=== PATIENT | female | born 1940 | race Caucasian/White ===

== ENCOUNTER → 2016-11-16 | Outpatient (CLI) | payer MEDICARE ==
--- NOTE | 2016-11-17 12:22 | XCELERA REPORT ---
[address] [address] Lower Extremity Arterial Evaluation Name: MYLES FISCHER Age: 76 yrs Gender: Female : 1940 Patient Status: Outpatient Patient Location: Study Date: 11/16/2016 08:08 AM Procedure: A color flow and duplex scan of the lower extremity arteries was performed bilaterally with velocity and waveform anaylsis. Ankle brachial indicies performed. Reason For Study: PVD Ordering Physician: JULI HERNANDEZ Performed By: Carlos Enrique Ron Measurements and Calculations Right Left FRIT MIXER PSV 196.4 158.0 cm/sec Prox PFA PSV -87.3 -75.4 cm/sec Dist SFA PSV -121.5 -113.1 cm/sec Dist Pop A PSV 114.5 84.0 cm/sec Dist MELISSA PSV 21.0 84.3 cm/sec Dist MA[facility]PITAL PSV 107.5 72.9 cm/sec Shaan Pedis PSV 36.2 82.3 cm/sec Right Side Arterial Evaluation Normal velocity and triphasic waveforms noted from the Common Femoral artery to the Popliteal artery. Biphasic thereafter top the infrageniculate vessels. 0-19% stenosis at the Popliteal artery . Ankle Brachial index is 1.24. Left Side Arterial Evaluation Normal velocity and triphasic waveforms noted from the Common Femoral artery to the infregeniculate vessels. 0 % stenosis noted. Ankle Brachial index is 1.09. Interpretation Summary Mild hemodynamically significant lesions in the right lower extremity only, on duplex imaging, at rest. No hemodynamically significant lesions in the left lower extremity only, on duplex imaging, at rest. : JULI HERNANDEZ > Singh Wynn
== END ==
LOC: SP 07:48
PROVIDERS: ATTEND Internal Medicine Geriatric Medicine
DX: I73.9 Peripheral vascular disease, unspecified (principal)
CPT/HCPCS: 93925

== ENCOUNTER 2017-03-08 14:23 | Observation (INO) | payer MEDICARE ==
[2017-03-08 15:32] LABS: ABSOLUTE BASOPHILS # (AUTO) 0.1 10^3/uL (0.0-0.2); ABSOLUTE EOSINOPHILS # (AUTO) 0.2 10^3/uL (0.0-0.6); ABSOLUTE LYMPHOCYTES (AUTO) 1.8 10^3/uL (0.5-4.7); ABSOLUTE MONOCYTES (AUTO) 0.7 10^3/uL (0.1-1.4); BASOPHILS % (AUTO) 0.9 % (0-2); EOSINOPHILS % (AUTO) 1.2 % (0-6); LYMPHOCYTES % (AUTO) 14.3 % (13-45); MEAN CORPUSCULAR HEMOGLOBIN 31.4 pg (27.0-33.4); MEAN CORPUSCULAR HGB CONC 34.4 g/dL (32.0-36.0); MEAN CORPUSCULAR VOLUME 91 fl (80-97); MONOCYTES % (AUTO) 5.5 % (3-13); RED BLOOD COUNT 4.15 10^6/uL (3.72-5.28); SEGMENTED NEUTROPHILS % (AUTO) 78.1 % (42-78); WHITE BLOOD COUNT 12.8 10^3/uL (4.0-10.5)
--- NOTE | 2017-03-08 16:26 | ER Document Report ---
ED General - General Chief Complaint: Dizziness Stated Complaint: DIZZINESS Time Seen by Provider: 03/08/17 14:28 Mode of Arrival: Stretcher Information source: Patient, Dr. Office Notes: 77-year-old female who has had dizziness episodes over the past year presents after she had another dizzy episode after she had an injection performed by her physician. Patient was brought in for evaluation, she denies any complaints states this is similar to all her previous dizzy episodes she states this has nothing to do with the procedure she had done today. Patient notes that she feels silly for being here but was reassured that I will evaluate her for this chronic dizziness TRAVEL OUTSIDE OF THE [place] IN LAST 30 DAYS: No - HPI Onset: Just prior to arrival Onset/Duration: Sudden, Gone Quality of pain: No pain Severity: Mild Pain Level: Denies Associated symptoms: Other - Patient notes symptoms have resolved Exacerbated by: Denies Relieved by: Denies Similar symptoms previously: Yes Recently seen / treated by doctor: Yes - Related Data Allergies/Adverse Reactions: codeine Allergy (Verified 03/08/17 14:52) Past Medical History - Social History Smoking Status: Never Smoker Cigarette use (# per day): No Chew tobacco use (# tins/day): No Smoking Education Provided: No Drug Abuse: None Family History: Reviewed & Not Pertinent Patient has suicidal ideation: No Patient has homicidal ideation: No - Past Medical History Cardiac Medical History: Reports: Hx Hypertension Endocrine Medical History: Reports: Hx Diabetes Mellitus Type 2 Renal/ Medical History: Denies: Hx Peritoneal Dialysis Past Surgical History: Reports: Hx Breast Surgery, Hx Cholecystectomy, Hx Hysterectomy Review of Systems - Review of Systems Notes: REVIEW OF SYSTEMS: CONSTITUTIONAL : Denies fever, chills, or sweats. Denies recent illness. EENT: Denies eye, ear, throat, or mouth pain or symptoms. Denies nasal or sinus congestion or discharge. Denies throat, tongue, or mouth swelling or difficulty swallowing. CARDIOVASCULAR: Denies chest pain. Denies palpitations or racing or irregular heart beat. Denies ankle edema. RESPIRATORY: Denies cough, cold, or chest congestion. Denies shortness of breath, difficulty breathing, or wheezing. GASTROINTESTINAL: Denies abdominal pain or distention. Denies nausea, vomiting , or diarrhea. Denies blood in vomitus, stools, or per rectum. Denies black, tarry stools. Denies constipation. GENITOURINARY: Denies difficulty urinating, painful urination, burning, frequency, blood in urine, or discharge. FEMALE GENITOURINARY: Denies vaginal bleeding, heavy or abnormal periods, irregular periods. Denies vaginal discharge or odor. MUSCULOSKELETAL: Denies back or neck pain or stiffness. Denies joint pain or swelling. SKIN: Denies rash, lesions or sores. HEMATOLOGIC : Denies easy bruising or bleeding. LYMPHATIC: Denies swollen, enlarged glands. NEUROLOGICAL: Admits to dizziness PSYCHIATRIC: Denies anxiety or stress. Denies depression, suicidal ideation, or homicidal ideation. ALL OTHER SYSTEMS REVIEWED AND NEGATIVE. PHYSICAL EXAMINATION: GENERAL: Well-appearing, well-nourished and in no acute distress. HEAD: Atraumatic, normocephalic. EYES: Pupils equal round and reactive to light, extraocular movements intact, conjunctiva are normal. ENT: Nares patent, oropharynx clear without exudates. Moist mucous membranes. NECK: Normal range of motion, supple without lymphadenopathy LUNGS: Breath sounds clear to auscultation bilaterally and equal. No wheezes rales or rhonchi. HEART: Regular rate and rhythm without murmurs ABDOMEN: Soft, nontender, nondistended abdomen. No guarding, no rebound. No masses appreciated. Female : deferred Musculoskeletal: Normal range of motion, no pitting or edema. No cyanosis. NEUROLOGICAL: Cranial nerves grossly intact. Normal speech, normal gait. Normal sensory, motor exams PSYCH: Normal mood, normal affect. SKIN: Warm, Dry, normal turgor, no rashes or lesions noted. Dictation was performed using [place] voice recognition software Physical Exam - Vital signs Vitals: Temp Resp Pulse Ox 97.6 F 26 H 99 03/08/17 14:36 03/08/17 14:36 03/08/17 14:36 Course - Re-evaluation Re-evalutation: 03/08/17 16:26 Patient's physical examination is quite benign, I will order lab work, EKG noted no significant abnormality, patient has had and her chronic dizziness evaluated by her primary care physician, after my initial evaluation she does admit that she has had some sinus tenderness that her physician has been treating with nasal sprays 03/08/17 17:18 Patient noted to have significant hyperkalemia and worsening renal failure, I did contact her primary care physician who notes that her labs have been similar in the past but are worse today. I did speak with the patient she is afraid that due to her dizziness she may fall again. Therefore I will admit the patient for hospitalization - Vital Signs Vital signs: Temp Pulse Resp BP Pulse Ox 97.6 F 21 H 139/85 H 98 03/08/17 14:36 03/08/17 14:37 03/08/17 14:37 03/08/17 14:37 - Laboratory Result Diagrams: 03/08/17 15:21 03/08/17 16:19 Laboratory results interpreted by me: 03/08/17 03/08/17 15:21 16:19 WBC 12.8 H Seg Neutrophils % 78.1 H Absolute Neutrophils 10.0 H Potassium 5.9 H Chloride 108 H Carbon Dioxide 20 L BUN 41 H Creatinine 1.96 H Est GFR ( Amer) 30 L Est GFR (Non-Af Amer) 25 L - EKG Interpretation by Me EKG shows normal: Sinus rhythm, [place], Intervals, QRS Complexes Critical Care Note - Critical Care Note Total time excluding time spent on procedures (mins): 34 Comments: 34 minutes of critical care time spent in direct contact evaluating and reevaluating the patient, treating symptoms, reviewing labs and studies and speaking with family and consultants excluding any procedures Discharge - Discharge Clinical Impression: Hyperkalemia, Dizziness Condition: Good Disposition: ADMITTED OBSERVATION Admitting Provider: Lucrecia Unit Admitted: Telemetry Referrals: SARWAT RODRIGUEZ MD [Primary Care Provider] - Follow up as needed
[2017-03-08 16:46] LABS: ALANINE AMINOTRANSFERASE 25 U/L (9-52); ALKALINE PHOSPHATASE 58 U/L (38-126); ANION GAP 13 (5-19); ASPARTATE AMINO TRANSFERASE 21 U/L (14-36); BILIRUBIN,DIRECT 0.3 mg/dL (0.0-0.4); BILIRUBIN,TOTAL 0.3 mg/dL (0.2-1.3); BLOOD UREA NITROGEN 41 mg/dL (7-20); CALCIUM 9.3 mg/dL (8.4-10.2); CARBON DIOXIDE 20 mmol/L (22-30); CHLORIDE 108 mmol/L (98-107); CREATININE RESULT 1.96 mg/dL (0.52-1.25); GLUCOSE 95 mg/dL (75-110); POTASSIUM 5.9 mmol/L (3.6-5.0); SODIUM 140.9 mmol/L (137-145); TOTAL PROTEIN 6.5 g/dL (6.3-8.2)
[2017-03-08] MEDS ORDERED: SODIUM BICARBONATE 8.4% INJ 50 MEQ/50 ML DISP.SYRIN IV ONE (17:17)
[2017-03-08] MEDS ORDERED: INSULIN REG, HUMAN 100 UNIT/ML 3 ML VIAL (PYX) IV ONE (17:17)
[2017-03-08] MEDS ORDERED: ALBUTEROL SULFATE 0.083% NEB 2.5 MG/3 ML AMPUL NEB ONE (17:17)
[2017-03-08] MEDS ORDERED: DEXTROSE 50%-WATER 25 GM/50 ML DISP.SYRIN IV ONE ×2 (17:17→17:28)
[2017-03-08] MEDS ORDERED: NORMAL SALINE 1000 ML 1,000 ML IV PRN (17:18)
--- NOTE | 2017-03-08 19:42 | PDOC H&P ---
History of Present Illness Admission Date/PCP: 03/08/17 18:10 JULI HERNANDEZ MD Patient complains of: Dizziness, Fall History of Present Illness: MYLES FISCHER is a 77 year old female known to my practice who was seen in the outpatient section of our facility for intrathecal injection into her left hip joint due to arthritis and joint pain. Patient reported that after the procedure she was getting off the stretcher and "went down". She claimed associated dizziness. She denied loss of consciousness. She was assisted off the stretcher by two female staff otherwise she would have hit her head on the floor. She was subsequently brought the the ED for further evaluation and management. She denied any associated chest pain or preceding palpitation. She admitted ringing in her ears, particularly right ear for couple of days. she denied any nausea or vomiting. She claimed episode of fever couple of days ago but not currently. She reported intermittent tremulousness but denied chills. Her initial ED evaluation revealed elevated serum potassium level and worsening renal indices necessitating medical management and recommended hospitalization. Past Medical History Cardiac Medical History: Reports: Hypertension Endocrine Medical History: Reports: Diabetes Mellitus Type 2 Musculoskeltal Medical History: Reports: Arthritis Past Surgical History Past Surgical History: Reports: Cholecystectomy, Hysterectomy Social History Smoking Status: Never Smoker - Advance Directive Resuscitation Status: Full Code Family History Family History: Reviewed & Not Pertinent Parental Family History Reviewed: Yes Children Family History Reviewed: Yes Sibling(s) Family History Reviewed.: Yes Medication/Allergy Allergies/Adverse Reactions: codeine Allergy (Verified 03/08/17 14:52) Review of Systems Constitutional: PRESENT: fever(s) - several days ago Eyes: ABSENT: visual disturbances Ears: PRESENT: other - ringing in ears. ABSENT: hearing changes Nose, Mouth, and Throat: ABSENT: as per HPI, headache(s), mouth pain, sore throat, vertigo, other Cardiovascular: ABSENT: chest pain, dyspnea on exertion, edema, orthropnea, palpitations Respiratory: ABSENT: cough, hemoptysis Gastrointestinal: ABSENT: abdominal pain, constipation, diarrhea, hematemesis, hematochezia, nausea, vomiting Genitourinary: ABSENT: dysuria, hematuria Musculoskeletal: PRESENT: deformity - related to multiple joints involvement with arthritis Integumentary: ABSENT: rash, wounds Neurological: ABSENT: abnormal gait, abnormal speech, confusion, dizziness, focal weakness, syncope Psychiatric: ABSENT: anxiety, depression, homidical ideation, suicidal ideation Endocrine: ABSENT: cold intolerance, heat intolerance, polydipsia, polyuria Hematologic/Lymphatic: ABSENT: easy bleeding, easy bruising, lymphadenopathy Allergic/Immunologic: ABSENT: seasonal rhinorrhea Physical Exam Vital Signs: Temp Pulse Resp BP Pulse Ox 97.6 F 21 H 139/85 H 98 03/08/17 14:36 03/08/17 14:37 03/08/17 14:37 03/08/17 14:37 General appearance: PRESENT: no acute distress, obese Head exam: PRESENT: atraumatic, normocephalic Eye exam: PRESENT: conjunctiva pink, EOMI, PERRLA. ABSENT: scleral icterus Ear exam: PRESENT: normal external ear exam Mouth exam: PRESENT: moist, tongue midline Teeth exam: PRESENT: poor dentation Throat exam: ABSENT: post pharyngeal erythema, tonsillar erythema, tonsillar exudate, tonsillogmegaly, other Neck exam: PRESENT: full ROM. ABSENT: carotid bruit, JVD, lymphadenopathy, thyromegaly Respiratory exam: PRESENT: clear to auscultation james Cardiovascular exam: PRESENT: RRR. ABSENT: diastolic murmur, rubs, systolic murmur Pulses: PRESENT: normal dorsalis pedis pul, +2 pedal pulses bilateral Vascular exam: PRESENT: normal capillary refill. ABSENT: pallor GI/Abdominal exam: PRESENT: normal bowel sounds, soft. ABSENT: distended, guarding, mass, organolmegaly, rebound, tenderness Rectal exam: PRESENT: deferred Extremities exam: ABSENT: pedal edema Musculoskeletal exam: PRESENT: deformity - related to multiple joints involvement with arthritis Neurological exam: PRESENT: alert, awake, oriented to person, oriented to place , oriented to time, oriented to situation, CN II-XII grossly intact. ABSENT: motor sensory deficit Psychiatric exam: PRESENT: appropriate affect, normal mood. ABSENT: homicidal ideation, suicidal ideation Skin exam: PRESENT: dry, intact, warm. ABSENT: cyanosis, rash Results Laboratory Results: I reviewed her lab results on [employer] and form significant part of my medical decision making. Assessment & Plan - Time Time Spent: 50 to 70 Minutes Medications reviewed and adjusted accordingly: Yes Anticipated discharge: Home Within: within 48 hours - Plan Summary Plan Summary: See admitting physician orders.
[2017-03-08] MEDS ORDERED: AMLODIPINE BESYLATE 5 MG TABLET PO ONE (20:00)
[2017-03-09] MEDS: NORMAL SALINE 1000 ML 1,000 ML IV PRN (00:23)
[2017-03-09] MEDS: LANSOPRAZOLE 30 MG TAB.RAP.DR PO SCH (05:27)
[2017-03-09 06:11] LABS: ABSOLUTE BASOPHILS # (AUTO) 0.1 10^3/uL (0.0-0.2); ABSOLUTE EOSINOPHILS # (AUTO) 0.1 10^3/uL (0.0-0.6); ABSOLUTE LYMPHOCYTES (AUTO) 1.7 10^3/uL (0.5-4.7); ABSOLUTE MONOCYTES (AUTO) 0.7 10^3/uL (0.1-1.4); ABSOLUTE NEUT (AUTO) 7.6 10^3/uL (1.7-8.2); BASOPHILS % (AUTO) 0.5 % (0-2); EOSINOPHILS % (AUTO) 0.8 % (0-6); HEMATOCRIT 34.2 % (36.0-47.0); HEMOGLOBIN 11.6 g/dL (12.0-15.5); HGB HCT DIFFERENCE 0.6; LYMPHOCYTES % (AUTO) 16.8 % (13-45); MEAN CORPUSCULAR HEMOGLOBIN 30.9 pg (27.0-33.4); MEAN CORPUSCULAR HGB CONC 33.9 g/dL (32.0-36.0); MEAN CORPUSCULAR VOLUME 91 fl (80-97); RED BLOOD COUNT 3.75 10^6/uL (3.72-5.28); RED CELL DISTRIBUTION WIDTH 12.9 % (11.5-14.0); SEGMENTED NEUTROPHILS % (AUTO) 74.9 % (42-78); WHITE BLOOD COUNT 10.2 10^3/uL (4.0-10.5)
[2017-03-09 06:38] LABS: ALANINE AMINOTRANSFERASE 32 U/L (9-52); ALBUMIN 3.5 g/dL (3.5-5.0); ALKALINE PHOSPHATASE 54 U/L (38-126); ANION GAP 12 (5-19); ASPARTATE AMINO TRANSFERASE 24 U/L (14-36); BILIRUBIN,DIRECT 0.4 mg/dL (0.0-0.4); BILIRUBIN,TOTAL 0.4 mg/dL (0.2-1.3); BLOOD UREA NITROGEN 30 mg/dL (7-20); CALCIUM 8.9 mg/dL (8.4-10.2); CARBON DIOXIDE 20 mmol/L (22-30); CHLORIDE 111 mmol/L (98-107); CREATININE RESULT 1.58 mg/dL (0.52-1.25); GLUCOSE 87 mg/dL (75-110); POTASSIUM 5.2 mmol/L (3.6-5.0); SODIUM 142.9 mmol/L (137-145)
--- NOTE | 2017-03-09 09:38 | EKG REPORT ---
SEVERITY:- NORMAL ECG - SINUS RHYTHM : Confirmed by: Kate Whitfield 09-Mar-2017 09:38:24
[2017-03-09] MEDS: AMLODIPINE BESYLATE 5 MG TABLET PO SCH (09:40)
[2017-03-09] MEDS: GLIMEPIRIDE 1 MG TABLET PO SCH (09:41)
[2017-03-09] MEDS: ENOXAPARIN SODIUM INJ 30 MG/0.3 ML DISP.SYRIN SUBCUT SCH (09:41)
[2017-03-09] MEDS ORDERED: GLIPIZIDE XL 5 MG TAB.ER.24 PO SCH (10:00)
[2017-03-09] MEDS ORDERED: SODIUM POLYSTYRENE SULFONATE 15 GM/60 ML PO ONE (16:50)
--- NOTE | 2017-03-09 17:01 | PDOC PROGRESS REPORT ---
Subjective Progress Note for:: 03/09/17 Subjective:: Patient reported poor sleep pattern. No chest pain or difficulty with breathing. No nausea or vomiting. No fever or chills. Patient's tremulousness have improved significant IV since last clinical evaluation. Physical Exam Vital Signs: Temp Pulse Resp BP Pulse Ox 98.2 F 88 17 141/62 H 97 03/09/17 04:20 03/09/17 08:58 03/09/17 04:20 03/09/17 04:20 03/09/17 04:20 Intake & Output 03/08/17 03/09/17 03/10/17 06:59 06:59 06:59 Intake Total 1220 Output Total 2250 Balance -1030 Weight 116.7 kg General appearance: PRESENT: no acute distress, well-developed, well-nourished Head exam: PRESENT: atraumatic, normocephalic Eye exam: PRESENT: conjunctiva pink, EOMI, PERRLA. ABSENT: scleral icterus Mouth exam: PRESENT: moist Teeth exam: PRESENT: poor dentation Respiratory exam: PRESENT: clear to auscultation james Cardiovascular exam: PRESENT: RRR. ABSENT: diastolic murmur, rubs, systolic murmur Vascular exam: PRESENT: normal capillary refill. ABSENT: pallor GI/Abdominal exam: PRESENT: normal bowel sounds, soft. ABSENT: distended, guarding, mass, organolmegaly, rebound, tenderness Extremities exam: ABSENT: pedal edema Musculoskeletal exam: PRESENT: deformity - related to osteoarthritis, normal inspection Neurological exam: PRESENT: alert, altered, awake, oriented to person, oriented to place, oriented to time, oriented to situation, CN II-XII grossly intact. ABSENT: motor sensory deficit Psychiatric exam: PRESENT: appropriate affect, normal mood. ABSENT: homicidal ideation, suicidal ideation Skin exam: PRESENT: dry, intact, warm. ABSENT: cyanosis, rash Results Laboratory Results: 03/09/17 05:49 03/09/17 05:49 03/09/17 03/09/17 05:49 05:49 WBC 10.2 RBC 3.75 Hgb 11.6 L Hct 34.2 L MCV 91 MCH 30.9 MCHC 33.9 RDW 12.9 Plt Count 244 Seg Neutrophils % 74.9 Lymphocytes % 16.8 Monocytes % 7.0 Eosinophils % 0.8 Basophils % 0.5 Absolute Neutrophils 7.6 Absolute Lymphocytes 1.7 Absolute Monocytes 0.7 Absolute Eosinophils 0.1 Absolute Basophils 0.1 Sodium 142.9 Potassium 5.2 H Chloride 111 H Carbon Dioxide 20 L Anion Gap 12 BUN 30 H Creatinine 1.58 H Est GFR ( Amer) 38 L Est GFR (Non-Af Amer) 32 L Glucose 87 Calcium 8.9 Total Bilirubin 0.4 AST 24 ALT 32 Alkaline Phosphatase 54 Total Protein 6.0 L Albumin 3.5 Assessment & Plan - Diagnosis (1) Diabetes mellitus type 2 in obese Is this a current diagnosis for this admission?: Yes Plan: Continue all current medication management. See attending physician orders. (2) HTN (hypertension) Qualifiers: Hypertension type: essential hypertension Qualified Code(s): I10 - Essential (primary) hypertension Is this a current diagnosis for this admission?: Yes Plan: Continue on current medication with Amlodipine 10 mg po daily for her blood pressure management. (4) CKD (chronic kidney disease) Qualifiers: Chronic kidney disease stage: stage 3 (moderate) Qualified Code(s): N18.3 - Chronic kidney disease, stage 3 (moderate) Is this a current diagnosis for this admission?: Yes Plan: Improving renal indices. Continue gentle hydration. Patient will receive Kayexalate 30 gm p.o x 1 dose. - Time Time Spent with patient: 25-34 minutes Medications reviewed and adjusted accordingly: Yes Anticipated discharge: Home - Plan Summary Plan Summary: Obtain BMP in am. See other attending physician orders.
[2017-03-10] MEDS: LANSOPRAZOLE 30 MG TAB.RAP.DR PO SCH (05:24)
[2017-03-10 05:33] LABS: ANION GAP 13 (5-19); BLOOD UREA NITROGEN 22 mg/dL (7-20); CALCIUM 8.6 mg/dL (8.4-10.2); CARBON DIOXIDE 20 mmol/L (22-30); CHLORIDE 109 mmol/L (98-107); CREATININE RESULT 1.45 mg/dL (0.52-1.25); GLUCOSE 118 mg/dL (75-110); POTASSIUM 4.4 mmol/L (3.6-5.0); SODIUM 142.3 mmol/L (137-145)
[2017-03-10] MEDS: NORMAL SALINE 1000 ML 1,000 ML IV PRN (05:41)
[2017-03-10] MEDS: GLIMEPIRIDE 1 MG TABLET PO SCH (09:41)
[2017-03-10] MEDS: AMLODIPINE BESYLATE 5 MG TABLET PO SCH (09:41)
[2017-03-10] MEDS: ENOXAPARIN SODIUM INJ 30 MG/0.3 ML DISP.SYRIN SUBCUT SCH (09:41)
[2017-03-10 11:55] VITALS: BP 134/62
--- NOTE | 2017-03-10 14:22 | PDOC DISCHARGE SUMMARY ---
General - Admit/Disc Date/PCP Admission Date/Primary Care Provider: 03/08/17 18:10 JULI HERNANDEZ MD Discharge Date: 03/10/17 - Discharge Diagnosis (1) Diabetes mellitus type 2 in obese Is this a current diagnosis for this admission?: Yes (2) HTN (hypertension) Is this a current diagnosis for this admission?: Yes (4) CKD (chronic kidney disease) Is this a current diagnosis for this admission?: Yes - Additional Information Resuscitation Status: Full Code Discharge Diet: Cardiac, Diabetic Discharge Activity: Activity As Tolerated Home Medications: Glimepiride [Amaryl] 2 mg PO DAILY 03/08/17 Glipizide [Glipizide ER] 5 mg PO DAILY 03/08/17 Linaclotide [Linzess] 72 mcg PO DAILY 03/08/17 Amlodipine Besylate [Norvasc 5 mg Tablet] 5 mg PO BID #60 tablet 03/10/17 History of Present Illness History of Present Illness: MYLES FISCHER is a 77 year old female known to my practice who was seen in the outpatient section of our facility for intrathecal injection into her left hip joint due to arthritis and joint pain. Patient reported that after the procedure she was getting off the stretcher and "went down". She claimed associated dizziness. She denied loss of consciousness. She was assisted off the stretcher by two female staff otherwise she would have hit her head on the floor. She was subsequently brought the the ED for further evaluation and management. She denied any associated chest pain or preceding palpitation. She admitted ringing in her ears, particularly right ear for couple of days. she denied any nausea or vomiting. She claimed episode of fever couple of days ago but not currently. She reported intermittent tremulousness but denied chills. Her initial ED evaluation revealed elevated serum potassium level and worsening renal indices necessitating medical management and recommended hospitalization. Hospital Course Hospital Course: Patient did respond to IV fluid infusion and treatment for her hyperkalemia. Her medication with regard to Lisinopril and use of Metformin were discontinued. She will have further evaluation on outpatient bases. Her renal indices were on downward trend and serum potassium in normal range at time of discharge. She will follow up in the office as instructed upon discharge. Physical Exam Vital Signs: Temp Pulse Resp BP Pulse Ox 98.0 F 72 18 134/62 H 100 03/10/17 11:39 03/10/17 11:39 03/10/17 11:39 03/10/17 11:39 03/10/17 11:39 Intake & Output 03/09/17 03/10/17 03/11/17 06:59 06:59 06:59 Intake Total 1220 1663 Output Total 2250 600 Balance -1030 1063 Weight 116.7 kg Physical Exam: General appearance: PRESENT: no acute distress, cooperative, obese Head exam: PRESENT: atraumatic, normocephalic Mouth exam: PRESENT: moist Respiratory exam: PRESENT: clear to auscultation james Cardiovascular exam: PRESENT: RRR. ABSENT: diastolic murmur, rubs, systolic murmur Vascular exam: PRESENT: normal capillary refill. ABSENT: pallor GI/Abdominal exam: PRESENT: normal bowel sounds, soft. ABSENT: distended, guarding, mass, organomegaly, rebound, tenderness Extremities exam: ABSENT: pedal edema Musculoskeletal exam: PRESENT: normal inspection Neurological exam: PRESENT: alert - and appropriate in responses, awake Psychiatric exam: PRESENT: appropriate affect, normal mood. ABSENT: homicidal ideation, suicidal ideation Skin exam: PRESENT: dry, intact, warm. ABSENT: cyanosis, rash Results Laboratory Results: 03/09/17 05:49 03/10/17 04:06 03/10/17 04:06 Sodium 142.3 Potassium 4.4 Chloride 109 H Carbon Dioxide 20 L Anion Gap 13 BUN 22 H Creatinine 1.45 H Est GFR ( Amer) 42 L Est GFR (Non-Af Amer) 35 L Glucose 118 H Calcium 8.6 Qualifiers [place] BEING DISCHARGED WITH ANY OF THE FOLLOWING DIAGNOSIS?: No Plan Discharge Plan: D/c home today. Follow up in the office as instructed upon discharge. Time Spent: Less than 30 Minutes
== END 2017-03-10 12:15 | disposition home or self-care (01) ==
LOC: ER 14:23 → EH 18:10 → 5 19:04
PROVIDERS: ADMIT Internal Medicine Geriatric Medicine; ATTEND Internal Medicine Geriatric Medicine
DX: E11.22 Type 2 diabetes mellitus with diabetic chronic kidney disease (principal); I12.9 Hypertensive chronic kidney disease with stage 1 through stage 4 chronic kidney disease, or unspecified chronic kidney disease; N18.3 Chronic kidney disease, stage 3 (moderate); E66.9 Obesity, unspecified; H93.11 Tinnitus, right ear; E87.5 Hyperkalemia; R25.1 Tremor, unspecified; M19.90 Unspecified osteoarthritis, unspecified site; Z79.899 Other long term (current) drug therapy; Z79.84 Long term (current) use of oral hypoglycemic drugs; Z90.49 Acquired absence of other specified parts of digestive tract; R09.89 Other specified symptoms and signs involving the circulatory and respiratory systems; Z90.710 Acquired absence of both cervix and uterus; Z98.890 Other specified postprocedural states; Z68.36 Body mass index [BMI] 36.0-36.9, adult
CPT/HCPCS: 93005; 94640; 99291; 96361; 96374; 36415 ×3; 82962; 85025 ×2; 80048; 80053 ×2; 93010; A9270 ×8; J3490 ×2; J1650 ×2; J7030 ×3; J1815

== ENCOUNTER → 2017-03-08 | Day surgery (SDC) | payer MEDICARE ==
[~2017-03-08] MED LIST: BUPIVACAINE HCL 0.5 % INJ/PF 30 ML SDV ONE
--- NOTE | 2017-03-08 12:19 | Operative Report ---
PROCEDURE: 1. Left articular branch of femoral nerve radiofrequency denervation 2. Left articular branch of obturator nerve radiofrequency denervation Preoperative Diagnosis: Left osteoarthritis Hip Postoperative Diagnosis: Left osteoarthritis Hip DATE OF PROCEDURE: March 08, 2017 ANESTHESIA: Local anesthesia COMPLICATIONS: none reported PROCEDURE IN DETAIL: Hx/PE/meds/allergies/applicable labs reviewed. No changes and no contraindications were found. Full description of the procedure was provided including benefits as well as possible complications including transient increased pain, stomach irritation, mood alteration, transient weakness or parathesias as well as more serious nerve injury, bleeding, infection or allergic reaction. Informed consent was obtained and documented. The patient was brought to the procedure room and placed on the exam table in a comfortable supine position. The place for the needle placement was obtained by manual palpation with radiographic confirmation. The sterile field was prepared and sterile drapes. Local anesthesia superficial and deep was provided by local infiltration of 6 ml 1 % lidocaine. Using fluoroscopic guidance a 17g 150 mm radiofrequency needle with 4mm active tip was advanced to the anteromedial aspect of the extraarticular portion of the hip joint where the articular branch of the femoral nerve traverses until a bony endpoint is felt. Attempted aspiration yielded no blood. Motor testing was then performed with 2hz at 2 volts and no lower extremity motor stimulation was observed. 2 cc of .5 % marcaine was injected through the RF needle. A radiofrequency lesion of the articular branch of the femoral nerve was then performed at 80 degrees C for 2 min and 30 seconds. The needle was then withdrawn. A second needle was placed and using fluoroscopic guidance the needle was advanced to the incisura of the acetabulum where the articular branch of the obturator nerve traverses until a bony endpoint was met. Attempted aspiration yielded no blood. Radiographs were made. Motor testing was then performed with 2hz at 2 volts and no lower extremity motor stimulation was observed. 2cc .5 % marcaine was injected through the RF needle. A radiofrequency lesion of the articular branch of the obturator nerve was then performed at 80 degrees C for 2 minutes and 30 seconds. The needle was then withdrawn. The patient tolerated the procedure well. After observation the patient was discharged with instructions and follow up. They were also provided contact information to call regarding any concerning symptoms or questions. IMPRESSION: 1. Successful radiofrequency ablations of the articular branches of the obturator and femoral nerves was performed. 2. Follow up in 1-2 weeks to assess the efficacy of the procedure. 3. Estimated Blood Loss: 0 4. Disposition: home
== END ==
LOC: EDSTATUS 09:10 → RAD 11:45
PROVIDERS: ATTEND Family Medicine
PROC: 3E0T3TZ Introduction of Destructive Agent into Peripheral Nerves and Plexi, Percutaneous Approach (ICD-10-PCS; principal; 2017-03-08)
DX: M16.12 Unilateral primary osteoarthritis, left hip (principal)
CPT/HCPCS: 64640

== ENCOUNTER → 2017-05-09 | Outpatient (CLI) | payer MEDICARE ==
--- NOTE | 2017-05-09 15:14 | WOMENS IMAGING REPORT ---
EXAM DESCRIPTION: 3D SCREENING MAMMO BILAT COMPLETED DATE/TIME: 05/09/2017 1:22 pm REASON FOR STUDY: ROUTINE SCREENING; Z12.31 Z12.31 ENCNTR SCREEN MAMMOGRAM FOR MALIGNANT NEOPLASM O F STUART COMPARISON: 2010 TECHNIQUE: Standard craniocaudal and mediolateral oblique views of each breast recorded using digita l acquisition and breast tomosynthesis. LIMITATIONS: None. FINDINGS: No masses, calcifications or architectural distortion. No areas of suspicion. Read with the assistance of CAD. .[facility] - R2 Cenova Version 1.3 .[facility] - R2 Cenova Version 1.3 .[facility] - R2 Cenova Version 2.4 .[facility] [place] Cenova Version 2.4 .[facility] - R2 Charger Version 9.2 IMPRESSION: NORMAL MAMMOGRAM. BIRADS 1. BREAST DENSITY: b. There are scattered areas of fibroglandular density. BIRAD: 1 NEGATIVE RECOMMENDATION: ROUTINE SCREENING COMMENT: The patient has been notified of the results by letter per SA requirements. Additional no tification policies are in place for contacting patient with suspicious or incomplete findings. Quality ID #[id number]: The [employer] recommends an annual screening mammogram for women aged 40 years or over. This facility utilizes a reminder system to ensure that all patients receive reminder letters, and/or direct phone calls for appointments. This includes reminders for routine scr eening mammograms, diagnostic mammograms, or other Breast Imaging Interventions when appropriate. Th is patient will be placed in the appropriate reminder system. The [employer] (ACR) has developed recommendations for screening MRI of the breast s in certain patient populations, to be used in conjunction with mammography. Breast MRI surveillanc e may be appropriate for women with more than 20% lifetime risk of developing breast cancer as deter mined by genetic testing, significant family history of the disease, or history of mantle radiation f or Hodgkins Disease. ACR Practice Guidelines 2008. DBT Technology DBT is a type of tomographic mammography. With conventional mammography, overlapping breast tissue ma y make lesions difficult to detect, even with good compression. DBT uses an x-ray tube that rotates a round the breast, taking images at different angles. These images are then combined to create thin sl ices of the breast that the radiologist can view as a 3D reconstruction. The Fandium unit can perform full-field digital mammograms (2D imaging); or DBT (3D imaging); or both, in a combination mode that quickly performs both the mammogram and the tomosynthesis scan while the breast is still compressed. PQRS 6045F: Fluoroscopic imaging is not utilized for breast tomosynthesis. TECHNICAL DOCUMENTATION: FINDING NUMBER: (1) ASSESSMENT: (1) JOB ID: [id number] [employer]- All Rights Reserved
== END ==
LOC: WI 12:55
PROVIDERS: ATTEND Internal Medicine Geriatric Medicine
DX: Z12.31 Encounter for screening mammogram for malignant neoplasm of breast (principal)
CPT/HCPCS: 77063; 77067

== ENCOUNTER 2017-07-06 23:45 | Inpatient (IN) | payer MEDICARE ==
[2017-07-07 01:05] LABS: ABSOLUTE LYMPHOCYTES (AUTO) 0.6 10^3/uL (0.5-4.7); ABSOLUTE MONOCYTES (AUTO) 0.4 10^3/uL (0.1-1.4); ABSOLUTE NEUT (AUTO) 9.8 10^3/uL (1.7-8.2); BASOPHILS % (AUTO) 0.3 % (0-2); EOSINOPHILS % (AUTO) 0.1 % (0-6); HEMATOCRIT 44.6 % (36.0-47.0); HEMOGLOBIN 14.6 g/dL (12.0-15.5); LYMPHOCYTES % (AUTO) 5.5 % (13-45); MEAN CORPUSCULAR HEMOGLOBIN 28.2 pg (27.0-33.4); MEAN CORPUSCULAR HGB CONC 32.8 g/dL (32.0-36.0); MEAN CORPUSCULAR VOLUME 86 fl (80-97); PLATELET COUNT 253 10^3/uL (150-450); RED BLOOD COUNT 5.18 10^6/uL (3.72-5.28); RED CELL DISTRIBUTION WIDTH 14.7 % (11.5-14.0); SEGMENTED NEUTROPHILS % (AUTO) 90.1 % (42-78); TOTAL CELLS COUNTED % (AUTO) 100 %; WHITE BLOOD COUNT 10.9 10^3/uL (4.0-10.5)
[2017-07-07 01:15] LABS: ALANINE AMINOTRANSFERASE 29 U/L (9-52); ALBUMIN 4.3 g/dL (3.5-5.0); ALKALINE PHOSPHATASE 70 U/L (38-126); ANION GAP 15 (5-19); ASPARTATE AMINO TRANSFERASE 21 U/L (14-36); BILIRUBIN,DIRECT 0.4 mg/dL (0.0-0.4); BILIRUBIN,TOTAL 0.5 mg/dL (0.2-1.3); BLOOD UREA NITROGEN 29 mg/dL (7-20); CALCIUM 9.5 mg/dL (8.4-10.2); CARBON DIOXIDE 19 mmol/L (22-30); CHLORIDE 106 mmol/L (98-107); CREATINE KINASE 314 U/L (30-135); GLUCOSE 191 mg/dL (75-110); POTASSIUM 5.1 mmol/L (3.6-5.0); SODIUM 139.5 mmol/L (137-145); TOTAL PROTEIN 7.4 g/dL (6.3-8.2)
[2017-07-07] MEDS ORDERED: ACETAMINOPHEN 325 MG TABLET PO ONE (01:37)
--- NOTE | 2017-07-07 01:46 | RADIOLOGY REPORT (SQ) ---
EXAM DESCRIPTION: CT HEAD WITHOUT CLINICAL HISTORY: 77 years Female, trauma COMPARISON: None. TECHNIQUE: No contrast. This exam was performed according to our departmental dose-optimization program, which includes automated exposure control, adjustment of the mA and/or kV according to patient size and/or use of iterative reconstruction technique. FINDINGS: No hemorrhage or infarct. No mass, mass effect, or midline shift. Atherosclerosis. Calvarial bossing. Brain and extra-axial structures appear otherwise intact. IMPRESSION: No acute findings.
--- NOTE | 2017-07-07 02:14 | RADIOLOGY REPORT (SQ) ---
EXAM DESCRIPTION: HIP BILATERAL CLINICAL HISTORY: 77 years, Female, trauma COMPARISON: None. NUMBER OF VIEWS: 3 Findings: Bones, joints, and soft tissues of HIP BILATERAL appear intact. No significant effusion. Mild lower lumbar disc desiccation. IMPRESSION: No acute findings.
--- NOTE | 2017-07-07 02:19 | RADIOLOGY REPORT (SQ) ---
EXAM DESCRIPTION: CHEST SINGLE VIEW CLINICAL HISTORY: 77 years Female, syncope COMPARISON: None. NUMBER OF VIEWS/TECHNIQUE: 1/AP LIMITATIONS: None. FINDINGS: Moderate lung volume. Normal cardiac silhouette. Atherosclerosis. Right upper abdominal clips. Intact bony thorax. IMPRESSION: No acute cardiopulmonary findings.
[2017-07-07] MEDS ORDERED: NORMAL SALINE 500 ML IV ONE (02:23)
--- NOTE | 2017-07-07 02:33 | ER Document Report ---
ED General - General Chief Complaint: Fall Stated Complaint: FALL/BACK PAIN Time Seen by Provider: 07/07/17 00:00 Notes: Patient 77-year-old female presents with complaint of recurrent syncopal episodes. She she has had some occasional syncopal episodes for over a month but over the last 1-2 days have been frequent. Today she found her closet. She does not remember the fall. She denies headache or chest pain or shortness of breath. She said after phone calls that she is unable to get up and eventually her neighbor found her and called ambulance. She says she does have some pain in both hips which is worse on the left as well as some TRAVEL OUTSIDE OF THE [place] IN LAST 30 DAYS: No - Related Data Allergies/Adverse Reactions: codeine Allergy (Verified 07/07/17 01:12) Past Medical History - Social History Smoking Status: Unknown if Ever Smoked Family History: Reviewed & Not Pertinent Patient has suicidal ideation: No Patient has homicidal ideation: No - Past Medical History Cardiac Medical History: Reports: Hx Hypertension Endocrine Medical History: Reports: Hx Diabetes Mellitus Type 2 Renal/ Medical History: Denies: Hx Peritoneal Dialysis Musculoskeltal Medical History: Reports Hx Arthritis Psychiatric Medical History: Reports: Hx Depression Past Surgical History: Reports: Hx Breast Surgery, Hx Cholecystectomy, Hx Hysterectomy Physical Exam - Vital signs Vitals: Temp Pulse Resp BP Pulse Ox 98.2 F 80 20 145/77 H 97 07/07/17 00:03 07/07/17 00:03 07/07/17 00:03 07/07/17 00:03 07/07/17 00:03 Course - Re-evaluation Re-evalutation: 07/07/17 02:31 Patient presents with complaint of recurrent syncopal episodes and difficulty walking. I am unable to get her to really be able sit up very well in bed on her own. She is very weak in doing so. She also has some back pain and hip pain. Unable to get her to be able to stand up out of bed on her own. It is hard to determine if this is purely from pain or if it is also related to weakness which could be causing her recurrent syncopal episodes. Patient lives by herself and says that she does not feel that she can go home because she is unable to stand and walk and has been passing out. The only thing pending at this time is her urinalysis. I have given her some IV fluids and hopefully she will be able to urinate soon. I did call and speak with Dr. Peres, patient's primary care physician, who agrees to admit the patient. Dictation of this chart was performed using voice recognition software; therefore, there may be some unintended grammatical errors. - Vital Signs Vital signs: Temp Pulse Resp BP Pulse Ox 98.2 F 80 20 145/77 H 97 07/07/17 00:03 07/07/17 00:03 07/07/17 00:03 07/07/17 00:03 07/07/17 00:03 - Laboratory Result Diagrams: 07/07/17 00:47 07/07/17 00:47 Laboratory results interpreted by me: 07/07/17 07/07/17 00:47 00:47 WBC 10.9 H RDW 14.7 H Seg Neutrophils % 90.1 H Lymphocytes % 5.5 L Absolute Neutrophils 9.8 H Potassium 5.1 H Carbon Dioxide 19 L BUN 29 H Creatinine 1.34 H Est GFR ( Amer) 47 L Est GFR (Non-Af Amer) 38 L Glucose 191 H Creatine Kinase 314 H Discharge - Discharge Clinical Impression: Hyperkalemia CKD (chronic kidney disease) Qualifiers: Chronic kidney disease stage: unspecified stage Qualified Code(s): N18.9 - Chronic kidney disease, unspecified Condition: Stable Disposition: ADMITTED OBSERVATION Admitting Provider: Lucrecia
[2017-07-07 07:14] LABS: APPEARANCE,URINE CLEAR; BILIRUBIN,URINE NEGATIVE (NEGATIVE); COLOR,URINE YELLOW; GLUCOSE, URINE NEGATIVE (NEGATIVE); KETONES,URINE NEGATIVE (NEGATIVE); LEUKOCYTE ESTERASE,URINE NEGATIVE (NEGATIVE); NITRITE,URINE NEGATIVE (NEGATIVE); PROTEIN,URINE NEGATIVE (NEGATIVE); UROBILINOGEN,URINE NEGATIVE mg/dL (<2.0)
[2017-07-07] MEDS ORDERED: DEXTROSE 40% GEL 15 GM TUBE X 2 PO PRN (07:32)
[2017-07-07] MEDS ORDERED: GLUCAGON,HUMAN RECOMB 1 MG INJ IM PRN (07:32)
[2017-07-07] MEDS ORDERED: DEXTROSE 50%-WATER SYRINGE 25 GM/50 ML DOSE IV PRN (07:32)
[2017-07-07] MEDS ORDERED: INSULIN LISPRO 100 UNIT/ML 3 ML VIAL SUBCUT PRN (07:32)
[2017-07-07] MEDS ORDERED: DEXTROSE 50%-WATER SYRINGE 12.5 GM/25 ML DOSE IV PRN (07:32)
[2017-07-07] MEDS ORDERED: DEXTROSE 40% GEL 15 GM TUBE PO PRN (07:32)
[2017-07-07] MEDS ORDERED: GLIPIZIDE XL 5 MG TAB.ER.24 PO SCH (10:00)
[2017-07-07] MEDS ORDERED: AMLODIPINE BESYLATE 5 MG TABLET PO SCH (10:00)
[2017-07-07] MEDS: GLIMEPIRIDE 1 MG TABLET PO SCH (11:30)
[2017-07-07] MEDS ORDERED: ACETAMINOPHEN 325 MG TABLET ONE (15:45)
--- NOTE | 2017-07-07 16:11 | PDOC H&P ---
History of Present Illness Admission Date/PCP: 07/07/17 03:23 JULI HERNANDEZ Patient complains of: Fall, hip pain, passed out History of Present Illness: MYLES FISCHER is a 77 year old female known to my practice who was brought to the ED by EMS after she was found in her closet at home. Patient narrated that she had her boiler changed recent at home and in the course of her going into her closet stepped on water slipped and fell down. She claimed that she lost consciousness after she fell. She remain on the floor for couple of hours before she was able to alert her neighbour by banging on her wall with quit frame . Her neighbour eventually activate EMS service and she was brought to the ED for further evaluation. Patient currently live alone! Her morbidities include hypertension, Diabetes Mellitus type 2, Osteoarthritis, Degenerative disc disease with chronic back pain and radiculopathy, and Depression. Past Medical History Cardiac Medical History: Reports: Hypertension Endocrine Medical History: Reports: Diabetes Mellitus Type 2 Musculoskeltal Medical History: Reports: Arthritis Psychiatric Medical History: Reports: Depression Past Surgical History Past Surgical History: Reports: Cholecystectomy, Hysterectomy Social History Smoking Status: Never Smoker Frequency of Alcohol Use: None Hx Recreational Drug Use: No Drugs: None Hx Prescription Drug Abuse: No - Advance Directive Resuscitation Status: Full Code Family History Family History: Reviewed & Not Pertinent Parental Family History Reviewed: Yes Children Family History Reviewed: Yes Sibling(s) Family History Reviewed.: Yes Medication/Allergy Home Medications: Amlodipine Besylate [Norvasc 5 mg Tablet] 5 mg PO DAILY 07/07/17 Gabapentin [Neurontin 300 mg Capsule] 300 mg PO BID 07/07/17 Gabapentin [Neurontin 300 mg Capsule] 600 mg PO QHS 07/07/17 Glimepiride [Amaryl] 2 mg PO DAILY 07/07/17 Irbesartan [Avapro] 150 mg PO DAILY 07/07/17 Linaclotide [Linzess] 72 mcg PO DAILY 07/07/17 Allergies/Adverse Reactions: codeine Allergy (Verified 07/07/17 01:12) Review of Systems Constitutional: ABSENT: chills, fever(s), headache(s), weight gain, weight loss Nose, Mouth, and Throat: PRESENT: headache(s) Cardiovascular: ABSENT: chest pain, dyspnea on exertion, edema, orthropnea, palpitations Respiratory: ABSENT: cough, hemoptysis Gastrointestinal: ABSENT: abdominal pain, constipation, diarrhea, hematemesis, hematochezia, nausea, vomiting Genitourinary: ABSENT: dysuria, hematuria Musculoskeletal: PRESENT: back pain - and bilateral hip joint pain, left >> right Integumentary: ABSENT: rash, wounds Neurological: PRESENT: frequent falls, syncope Psychiatric: ABSENT: anxiety, depression, homidical ideation, suicidal ideation Endocrine: ABSENT: cold intolerance, heat intolerance, polydipsia, polyuria Hematologic/Lymphatic: ABSENT: easy bleeding, easy bruising, lymphadenopathy Allergic/Immunologic: ABSENT: seasonal rhinorrhea Physical Exam Vital Signs: Temp Pulse Resp BP Pulse Ox 98.0 F 85 19 180/66 H 96 07/07/17 04:00 07/07/17 14:44 07/07/17 11:22 07/07/17 11:22 07/07/17 11:22 General appearance: PRESENT: no acute distress, obese Head exam: PRESENT: atraumatic, normocephalic Eye exam: PRESENT: conjunctiva pink, EOMI, PERRLA. ABSENT: scleral icterus Ear exam: PRESENT: normal external ear exam Mouth exam: PRESENT: moist, tongue midline Teeth exam: PRESENT: poor dentation Throat exam: ABSENT: post pharyngeal erythema, tonsillar erythema, tonsillar exudate, tonsillogmegaly, other Neck exam: PRESENT: full ROM. ABSENT: carotid bruit, JVD, lymphadenopathy, thyromegaly Respiratory exam: PRESENT: clear to auscultation james Cardiovascular exam: PRESENT: RRR. ABSENT: diastolic murmur, rubs, systolic murmur Pulses: PRESENT: normal dorsalis pedis pul, +2 pedal pulses bilateral Vascular exam: PRESENT: normal capillary refill. ABSENT: pallor GI/Abdominal exam: PRESENT: normal bowel sounds, soft. ABSENT: distended, guarding, mass, organolmegaly, rebound, tenderness Rectal exam: PRESENT: deferred Extremities exam: PRESENT: tenderness - lumbar spoine region to palpatiuon and movement.. ABSENT: pedal edema Musculoskeletal exam: PRESENT: deformity - related to multiple joints involvement with arthritis Neurological exam: PRESENT: alert, awake, oriented to person, oriented to place , oriented to time, oriented to situation, CN II-XII grossly intact. ABSENT: motor sensory deficit Psychiatric exam: PRESENT: appropriate affect, normal mood. ABSENT: homicidal ideation, suicidal ideation Skin exam: PRESENT: dry, intact, warm. ABSENT: cyanosis, rash Results Laboratory Results: I reviewed her lab results on [facility] and form significant part of my medical decision making. 07/07/17 06:57 Urine Color YELLOW Urine Appearance CLEAR Urine pH 5.0 Ur Specific [place] 1.020 Urine Protein NEGATIVE Urine Glucose (UA) NEGATIVE Urine Ketones NEGATIVE Urine Blood NEGATIVE Urine Nitrite NEGATIVE Ur Leukocyte Esterase NEGATIVE Urine WBC (Auto) 0 Urine RBC (Auto) 1 Impressions: Chest X-Ray 07/07/17 00:11 IMPRESSION: No acute cardiopulmonary findings. Head CT 07/07/17 00:11 IMPRESSION: No acute findings. Hip X-Ray 07/07/17 00:11 IMPRESSION: No acute findings. Assessment & Plan - Diagnosis (1) Fall at home Qualifiers: Encounter type: initial encounter Qualified Code(s): W19.XXXA - Unspecified fall, initial encounter; Y92.009 - Unspecified place in unspecified non-institutional (private) residence as the place of occurrence of the external cause; Y92.009 - Unspecified place in unspecified non-institutional ( private) residence as the place of occurrence of the external cause Is this a current diagnosis for this admission?: Yes Plan: Secondary to slipping on water surface near her closet at home. She has walker at home but limited usage. Straight cane was reported broken. Request PT evaluation for ambulatory safety and rehabilitation due to fear of falling. (2) INA (acute kidney injury) Plan: Maintain on IV fluid support. Probable due to muscle injury post fall at home. (4) Syncope Qualifiers: Syncope type: unspecified Qualified Code(s): R55 - Syncope and collapse Is this a current diagnosis for this admission?: Yes Plan: Etiology is not clear. Patient reported that she lost consciousness after falling. Her head CT scan was devoid of any acute pathology. (5) Diabetes mellitus type 2 in obese Is this a current diagnosis for this admission?: Yes Plan: See admitting attending physician orders. (6) HTN (hypertension) Qualifiers: Hypertension type: essential hypertension Qualified Code(s): I10 - Essential (primary) hypertension Is this a current diagnosis for this admission?: Yes Plan: See admitting attending physician orders. (7) HLD (hyperlipidemia) Qualifiers: Hyperlipidemia type: pure hypercholesterolemia Qualified Code(s): E78.00 - Pure hypercholesterolemia, unspecified; E78.0 - Pure hypercholesterolemia Is this a current diagnosis for this admission?: Yes Plan: See admitting attending physician orders. (8) Lumbar degenerative disc disease Is this a current diagnosis for this admission?: Yes Plan: See admitting attending physician orders. (9) Osteoarthritis involving multiple joints on both sides of body Is this a current diagnosis for this admission?: Yes Plan: See admitting attending physician orders. - Time Time Spent: 50 to 70 Minutes Medications reviewed and adjusted accordingly: Yes Anticipated discharge: Home with Homehealth Within: within 48 hours - Inpatient Certification Based on my medical assessment, after consideration of the patient's comorbidities, presenting symptoms, or acuity I expect that the services needed warrant INPATIENT care.: Yes I certify that my determination is in accordance with my understanding of Medicare's requirements for reasonable and necessary INPATIENT services [42 CFR 412.3e].: Yes Medical Necessity: Need Close Monitoring Due to Risk of Patient Decompensation, Need For IV Fluids, Need for Pain Control, Risk of Complication if Not Cared For in Hospital Post Hospital Care: D/C Outreach Specialist Documentation - Plan Summary Plan Summary: See admitting attending physician orders.
[2017-07-07] MEDS ORDERED: LOSARTAN POTASSIUM 50 MG TABLET PO ONE (16:12)
[2017-07-07] MEDS: GABAPENTIN 300 MG CAPSULE PO SCH ×2 (16:43→21:14)
[2017-07-07] MEDS: NORMAL SALINE 1000 ML 1,000 ML IV PRN (16:43)
[2017-07-08] MEDS: NORMAL SALINE 1000 ML 1,000 ML IV PRN (05:07)
[2017-07-08] MEDS: LANSOPRAZOLE 30 MG TAB.RAP.DR PO SCH (05:07)
[2017-07-08 06:31] LABS: ABSOLUTE EOSINOPHILS # (AUTO) 0.3 10^3/uL (0.0-0.6); ABSOLUTE LYMPHOCYTES (AUTO) 2.2 10^3/uL (0.5-4.7); ABSOLUTE MONOCYTES (AUTO) 0.8 10^3/uL (0.1-1.4); ABSOLUTE NEUT (AUTO) 4.2 10^3/uL (1.7-8.2); BASOPHILS % (AUTO) 0.6 % (0-2); EOSINOPHILS % (AUTO) 3.8 % (0-6); HEMATOCRIT 41.4 % (36.0-47.0); HEMOGLOBIN 13.5 g/dL (12.0-15.5); LYMPHOCYTES % (AUTO) 29.4 % (13-45); MEAN CORPUSCULAR HEMOGLOBIN 28.2 pg (27.0-33.4); MEAN CORPUSCULAR HGB CONC 32.6 g/dL (32.0-36.0); MEAN CORPUSCULAR VOLUME 86 fl (80-97); MONOCYTES % (AUTO) 11.2 % (3-13); PLATELET COUNT 254 10^3/uL (150-450); RED BLOOD COUNT 4.79 10^6/uL (3.72-5.28); TOTAL CELLS COUNTED % (AUTO) 100 %; WHITE BLOOD COUNT 7.6 10^3/uL (4.0-10.5)
[2017-07-08 07:01] LABS: CREATINE KINASE MB 2.69 ng/mL (<4.55)
[2017-07-08 07:07] LABS: TROPONIN I < 0.012 ng/mL
[2017-07-08 07:25] LABS: ALANINE AMINOTRANSFERASE 30 U/L (9-52); ALKALINE PHOSPHATASE 60 U/L (38-126); ANION GAP 15 (5-19); ASPARTATE AMINO TRANSFERASE 38 U/L (14-36); BILIRUBIN,DIRECT 0.2 mg/dL (0.0-0.4); BILIRUBIN,TOTAL 0.4 mg/dL (0.2-1.3); BLOOD UREA NITROGEN 27 mg/dL (7-20); CALCIUM 9.6 mg/dL (8.4-10.2); CARBON DIOXIDE 20 mmol/L (22-30); CHLORIDE 105 mmol/L (98-107); CREATINE KINASE 652 U/L (30-135); GLUCOSE 94 mg/dL (75-110); POTASSIUM 4.8 mmol/L (3.6-5.0); TOTAL PROTEIN 6.5 g/dL (6.3-8.2)
[2017-07-08] MEDS ORDERED: (PENDING PHARMACY ID) (Linaclotide [Linzess] 72 MCG) PO SCH (10:00)
[2017-07-08] MEDS ORDERED: (PENDING PHARMACY ID) (Irbesartan [Avapro] 150 MG) PO SCH (10:00)
[2017-07-08] MEDS: LOSARTAN POTASSIUM 50 MG TABLET PO SCH (10:16)
[2017-07-08] MEDS: AMLODIPINE BESYLATE 5 MG TABLET PO SCH (10:16)
[2017-07-08] MEDS: GLIMEPIRIDE 1 MG TABLET PO SCH (10:16)
[2017-07-08] MEDS: GABAPENTIN 300 MG CAPSULE PO SCH ×3 (10:16→21:52)
[2017-07-08] MEDS: ENOXAPARIN SODIUM INJ 40 MG/0.4 ML DISP.SYRIN SUBCUT SCH (10:17)
--- NOTE | 2017-07-08 17:44 | PDOC PROGRESS REPORT ---
Subjective Progress Note for:: 07/08/17 Subjective:: No chest pain or difficulty with breathing. No fever or chills. No nausea, vomiting, or abdominal pain. She participated in PT session earlier today. Nursing staff reported unsteadiness in her gait. Reason For Visit: FALL AT HOME,SYNCOPE Physical Exam Vital Signs: Temp Pulse Resp BP Pulse Ox 98.0 F 78 18 137/60 H 100 07/08/17 16:00 07/08/17 16:00 07/08/17 16:00 07/08/17 16:00 07/08/17 16:00 Intake & Output 07/07/17 07/08/17 07/09/17 06:59 06:59 06:59 Intake Total 1798 Output Total 1750 Balance 48 Weight 117.934 kg General appearance: PRESENT: no acute distress, obese Head exam: PRESENT: atraumatic, normocephalic Eye exam: PRESENT: conjunctiva pink, EOMI, PERRLA. ABSENT: scleral icterus Mouth exam: PRESENT: moist Teeth exam: PRESENT: poor dentation Respiratory exam: PRESENT: clear to auscultation james Cardiovascular exam: PRESENT: RRR. ABSENT: diastolic murmur, rubs, systolic murmur Vascular exam: PRESENT: normal capillary refill. ABSENT: pallor GI/Abdominal exam: PRESENT: normal bowel sounds, soft. ABSENT: distended, guarding, mass, organolmegaly, rebound, tenderness Extremities exam: ABSENT: pedal edema Musculoskeletal exam: PRESENT: normal inspection Neurological exam: PRESENT: alert, awake, oriented to person, oriented to place , oriented to time, oriented to situation, CN II-XII grossly intact. ABSENT: motor sensory deficit Psychiatric exam: PRESENT: appropriate affect, normal mood. ABSENT: homicidal ideation, suicidal ideation Skin exam: PRESENT: dry, intact, warm. ABSENT: cyanosis, rash Results Laboratory Results: 07/08/17 05:19 07/08/17 05:19 07/08/17 07/08/17 05:19 05:19 WBC 7.6 RBC 4.79 Hgb 13.5 Hct 41.4 MCV 86 MCH 28.2 MCHC 32.6 RDW 15.0 H Plt Count 254 Seg Neutrophils % 55.0 Lymphocytes % 29.4 Monocytes % 11.2 Eosinophils % 3.8 Basophils % 0.6 Absolute Neutrophils 4.2 Absolute Lymphocytes 2.2 Absolute Monocytes 0.8 Absolute Eosinophils 0.3 Absolute Basophils 0.0 Sodium 140.0 Potassium 4.8 Chloride 105 Carbon Dioxide 20 L Anion Gap 15 BUN 27 H Creatinine 1.24 Est GFR ( Amer) 51 L Est GFR (Non-Af Amer) 42 L Glucose 94 Calcium 9.6 Total Bilirubin 0.4 AST 38 H ALT 30 Alkaline Phosphatase 60 Total Protein 6.5 Albumin 4.0 07/08/17 07/08/17 05:19 05:19 Creatine Kinase 652 H CK-MB (CK-2) 2.69 Troponin I < 0.012 Impressions: Chest X-Ray 07/07/17 00:11 IMPRESSION: No acute cardiopulmonary findings. Head CT 07/07/17 00:11 IMPRESSION: No acute findings. Hip X-Ray 07/07/17 00:11 IMPRESSION: No acute findings. Assessment & Plan - Diagnosis (1) Fall at home Qualifiers: Encounter type: initial encounter Qualified Code(s): W19.XXXA - Unspecified fall, initial encounter; Y92.009 - Unspecified place in unspecified non-institutional (private) residence as the place of occurrence of the external cause; Y92.009 - Unspecified place in unspecified non-institutional ( private) residence as the place of occurrence of the external cause Is this a current diagnosis for this admission?: Yes (4) Syncope Qualifiers: Syncope type: unspecified Qualified Code(s): R55 - Syncope and collapse Is this a current diagnosis for this admission?: Yes (5) Diabetes mellitus type 2 in obese Is this a current diagnosis for this admission?: Yes (6) HTN (hypertension) Qualifiers: Hypertension type: essential hypertension Qualified Code(s): I10 - Essential (primary) hypertension Is this a current diagnosis for this admission?: Yes (7) HLD (hyperlipidemia) Qualifiers: Hyperlipidemia type: pure hypercholesterolemia Qualified Code(s): E78.00 - Pure hypercholesterolemia, unspecified; E78.0 - Pure hypercholesterolemia Is this a current diagnosis for this admission?: Yes (8) Lumbar degenerative disc disease Is this a current diagnosis for this admission?: Yes (9) Osteoarthritis involving multiple joints on both sides of body Is this a current diagnosis for this admission?: Yes - Time Time Spent with patient: 25-34 minutes Medications reviewed and adjusted accordingly: Yes Anticipated discharge: Home with Homehealth Within: within 48 hours - Plan Summary Plan Summary: Continue IV fluid hydration in view of worsening CK level in rhabdomyolysis range presently. Arrange for home health agency service upon discharge for home safety check. She will benefit from outpatient physical therapy program.
[2017-07-08] MEDS: ACETAMINOPHEN 325 MG TABLET PO PRN (17:47)
[2017-07-08] MEDS ORDERED: NORMAL SALINE 1000 ML 1,000 ML IV PRN (17:53)
[2017-07-09] MEDS: LANSOPRAZOLE 30 MG TAB.RAP.DR PO SCH (06:27)
[2017-07-09 07:02] LABS: ANION GAP 10 (5-19); BLOOD UREA NITROGEN 29 mg/dL (7-20); CALCIUM 9.3 mg/dL (8.4-10.2); CARBON DIOXIDE 22 mmol/L (22-30); CHLORIDE 110 mmol/L (98-107); CREATINE KINASE 413 U/L (30-135); GLUCOSE 111 mg/dL (75-110); POTASSIUM 4.9 mmol/L (3.6-5.0); SODIUM 141.8 mmol/L (137-145)
[2017-07-09 07:13] LABS: CREATINE KINASE MB 2.04 ng/mL (<4.55)
[2017-07-09 07:16] LABS: TROPONIN I < 0.012 ng/mL
[2017-07-09] MEDS: ENOXAPARIN SODIUM INJ 40 MG/0.4 ML DISP.SYRIN SUBCUT SCH (11:28)
[2017-07-09] MEDS: GABAPENTIN 300 MG CAPSULE PO SCH ×3 (11:29→21:38)
[2017-07-09] MEDS: AMLODIPINE BESYLATE 5 MG TABLET PO SCH (11:30)
[2017-07-09] MEDS: GLIMEPIRIDE 1 MG TABLET PO SCH (11:30)
[2017-07-09] MEDS: LOSARTAN POTASSIUM 50 MG TABLET PO SCH (11:31)
--- NOTE | 2017-07-09 17:03 | PDOC PROGRESS REPORT ---
Subjective Progress Note for:: 07/09/17 Subjective:: Patient denied chest pain or difficulty with breathing. No fever or chills. No nausea, vomiting or abdominal pain. Encouraged adequate oral fluid intake. Remain on IV fluid support. Reason For Visit: FALL AT HOME,SYNCOPE Physical Exam Vital Signs: Temp Pulse Resp BP Pulse Ox 97.4 F 72 18 137/87 H 98 07/09/17 15:44 07/09/17 15:44 07/09/17 15:44 07/09/17 15:44 07/09/17 15:44 Intake & Output 07/08/17 07/09/17 07/10/17 06:59 06:59 06:59 Intake Total 1798 3622 Output Total 1750 Balance 48 3622 Weight 117.934 kg Physical Exam: General appearance: PRESENT: no acute distress, obese Head exam: PRESENT: atraumatic, normocephalic Eye exam: PRESENT: conjunctiva pink, EOMI, PERRLA. ABSENT: scleral icterus Mouth exam: PRESENT: moist Teeth exam: PRESENT: poor dentition Respiratory exam: PRESENT: clear to auscultation james Cardiovascular exam: PRESENT: RRR. ABSENT: diastolic murmur, rubs, systolic murmur Vascular exam: PRESENT: normal capillary refill. ABSENT: pallor GI/Abdominal exam: PRESENT: normal bowel sounds, soft. ABSENT: distended, guarding, mass, organomegaly, rebound, tenderness Extremities exam: ABSENT: pedal edema Musculoskeletal exam: PRESENT: normal inspection Neurological exam: PRESENT: alert, awake, oriented to person, oriented to place , oriented to time, oriented to situation, CN II-XII grossly intact. ABSENT: motor sensory deficit Psychiatric exam: PRESENT: appropriate affect, normal mood. ABSENT: homicidal ideation, suicidal ideation Skin exam: PRESENT: dry, intact, warm. ABSENT: cyanosis, rash Results Laboratory Results: 07/08/17 05:19 07/09/17 06:40 07/09/17 06:40 Sodium 141.8 Potassium 4.9 Chloride 110 H Carbon Dioxide 22 Anion Gap 10 BUN 29 H Creatinine 1.23 Est GFR ( Amer) 51 L Est GFR (Non-Af Amer) 42 L Glucose 111 H Calcium 9.3 07/08/17 07/08/17 07/09/17 05:19 05:19 06:40 Creatine Kinase 652 H 413 H CK-MB (CK-2) 2.69 Troponin I < 0.012 07/09/17 06:40 Creatine Kinase CK-MB (CK-2) 2.04 Troponin I < 0.012 Impressions: Chest X-Ray 07/07/17 00:11 IMPRESSION: No acute cardiopulmonary findings. Head CT 07/07/17 00:11 IMPRESSION: No acute findings. Hip X-Ray 07/07/17 00:11 IMPRESSION: No acute findings. Assessment & Plan - Diagnosis (1) Fall at home Qualifiers: Encounter type: initial encounter Qualified Code(s): W19.XXXA - Unspecified fall, initial encounter; Y92.009 - Unspecified place in unspecified non-institutional (private) residence as the place of occurrence of the external cause; Y92.009 - Unspecified place in unspecified non-institutional ( private) residence as the place of occurrence of the external cause Is this a current diagnosis for this admission?: Yes (4) Syncope Qualifiers: Syncope type: unspecified Qualified Code(s): R55 - Syncope and collapse Is this a current diagnosis for this admission?: Yes (5) Diabetes mellitus type 2 in obese Is this a current diagnosis for this admission?: Yes (6) HTN (hypertension) Qualifiers: Hypertension type: essential hypertension Qualified Code(s): I10 - Essential (primary) hypertension Is this a current diagnosis for this admission?: Yes (7) HLD (hyperlipidemia) Qualifiers: Hyperlipidemia type: pure hypercholesterolemia Qualified Code(s): E78.00 - Pure hypercholesterolemia, unspecified; E78.0 - Pure hypercholesterolemia Is this a current diagnosis for this admission?: Yes (8) Lumbar degenerative disc disease Is this a current diagnosis for this admission?: Yes (9) Osteoarthritis involving multiple joints on both sides of body Is this a current diagnosis for this admission?: Yes (10) Rhabdomyolysis Qualifiers: Rhabdomyolysis type: non-traumatic Qualified Code(s): M62.82 - Rhabdomyolysis Is this a current diagnosis for this admission?: Yes Plan: see attending physician orders. - Time Time Spent with patient: 25-34 minutes Medications reviewed and adjusted accordingly: Yes Anticipated discharge: Home with Homehealth Within: Other - Inpatient Certification Based on my medical assessment, after consideration of the patient's comorbidities, presenting symptoms, or acuity I expect that the services needed warrant INPATIENT care.: Yes I certify that my determination is in accordance with my understanding of Medicare's requirements for reasonable and necessary INPATIENT services [42 CFR 412.3e].: Yes Medical Necessity: Need Close Monitoring Due to Risk of Patient Decompensation, Need For IV Fluids, Need For Continuous Telemetry Monitoring, Risk of Complication if Not Cared For in Hospital Post Hospital Care: D/C Supply Chain Tech Documentation - Plan Summary Plan Summary: See attending physician orders.
[2017-07-10] MEDS: LANSOPRAZOLE 30 MG TAB.RAP.DR PO SCH (05:10)
[2017-07-10 07:04] LABS: ANION GAP 14 (5-19); BLOOD UREA NITROGEN 28 mg/dL (7-20); CALCIUM 9.5 mg/dL (8.4-10.2); CARBON DIOXIDE 20 mmol/L (22-30); CHLORIDE 107 mmol/L (98-107); CREATINE KINASE 268 U/L (30-135); GLUCOSE 103 mg/dL (75-110); POTASSIUM 4.6 mmol/L (3.6-5.0); SODIUM 141.4 mmol/L (137-145)
[2017-07-10] MEDS: AMLODIPINE BESYLATE 5 MG TABLET PO SCH (11:00)
[2017-07-10] MEDS: GABAPENTIN 300 MG CAPSULE PO SCH ×3 (11:00→21:34)
[2017-07-10] MEDS: ENOXAPARIN SODIUM INJ 40 MG/0.4 ML DISP.SYRIN SUBCUT SCH (11:01)
[2017-07-10] MEDS: LOSARTAN POTASSIUM 50 MG TABLET PO SCH (11:01)
[2017-07-10] MEDS: GLIMEPIRIDE 1 MG TABLET PO SCH (11:01)
[2017-07-10] MEDS: ACETAMINOPHEN 325 MG TABLET PO PRN (16:02)
--- NOTE | 2017-07-10 19:04 | PDOC PROGRESS REPORT ---
Subjective Progress Note for:: 07/10/17 Subjective:: Patient denied chest pain or difficulty with breathing. No fever or chills. No nausea, vomiting or abdominal pain. Remain on IV fluid therapy. Reason For Visit: FALL AT HOME,RHABDOMYOLYSIS,INA WITH HYPERKALEMIA, Physical Exam Vital Signs: Temp Pulse Resp BP Pulse Ox 97.8 F 69 20 168/61 H 97 07/10/17 15:25 07/10/17 15:25 07/10/17 15:25 07/10/17 15:25 07/10/17 15:25 Intake & Output 07/09/17 07/10/17 07/11/17 06:59 06:59 06:59 Intake Total 3422 420 Balance 3422 420 Weight 118.7 kg Physical Exam: General appearance: PRESENT: no acute distress, obese Head exam: PRESENT: atraumatic, normocephalic Eye exam: PRESENT: conjunctiva pink, EOMI, PERRLA. ABSENT: scleral icterus Mouth exam: PRESENT: moist Teeth exam: PRESENT: poor dentition Respiratory exam: PRESENT: clear to auscultation james Cardiovascular exam: PRESENT: RRR. ABSENT: diastolic murmur, rubs, systolic murmur GI/Abdominal exam: PRESENT: normal bowel sounds, soft. ABSENT: distended, guarding, mass, organomegaly, rebound, tenderness Extremities exam: ABSENT: pedal edema Musculoskeletal exam: PRESENT: normal inspection Neurological exam: PRESENT: alert, awake, oriented to person, oriented to place , oriented to time, oriented to situation, CN II-XII grossly intact. ABSENT: motor sensory deficit Psychiatric exam: PRESENT: appropriate affect, normal mood. ABSENT: homicidal ideation, suicidal ideation Skin exam: PRESENT: dry, intact, warm. ABSENT: cyanosis, rash Results Laboratory Results: 07/10/17 05:34 07/10/17 05:34 Sodium 141.4 Potassium 4.6 Chloride 107 Carbon Dioxide 20 L Anion Gap 14 BUN 28 H Creatinine 1.14 Est GFR ( Amer) 56 L Est GFR (Non-Af Amer) 46 L Glucose 103 Calcium 9.5 07/10/17 05:34 Creatine Kinase 268 H Impressions: Chest X-Ray 07/07/17 00:11 IMPRESSION: No acute cardiopulmonary findings. Head CT 07/07/17 00:11 IMPRESSION: No acute findings. Hip X-Ray 07/07/17 00:11 IMPRESSION: No acute findings. Assessment & Plan - Diagnosis (1) Fall at home Qualifiers: Encounter type: initial encounter Qualified Code(s): W19.XXXA - Unspecified fall, initial encounter; Y92.009 - Unspecified place in unspecified non-institutional (private) residence as the place of occurrence of the external cause; Y92.009 - Unspecified place in unspecified non-institutional ( private) residence as the place of occurrence of the external cause Is this a current diagnosis for this admission?: Yes (4) Syncope Qualifiers: Syncope type: unspecified Qualified Code(s): R55 - Syncope and collapse Is this a current diagnosis for this admission?: Yes (5) Diabetes mellitus type 2 in obese Is this a current diagnosis for this admission?: Yes (6) HTN (hypertension) Qualifiers: Hypertension type: essential hypertension Qualified Code(s): I10 - Essential (primary) hypertension Is this a current diagnosis for this admission?: Yes (7) HLD (hyperlipidemia) Qualifiers: Hyperlipidemia type: pure hypercholesterolemia Qualified Code(s): E78.00 - Pure hypercholesterolemia, unspecified; E78.0 - Pure hypercholesterolemia Is this a current diagnosis for this admission?: Yes (8) Lumbar degenerative disc disease Is this a current diagnosis for this admission?: Yes (9) Osteoarthritis involving multiple joints on both sides of body Is this a current diagnosis for this admission?: Yes (10) Rhabdomyolysis Qualifiers: Rhabdomyolysis type: non-traumatic Qualified Code(s): M62.82 - Rhabdomyolysis Is this a current diagnosis for this admission?: Yes - Time Time Spent with patient: 25-34 minutes Medications reviewed and adjusted accordingly: Yes Anticipated discharge: Home with Homehealth Within: Other - Inpatient Certification Based on my medical assessment, after consideration of the patient's comorbidities, presenting symptoms, or acuity I expect that the services needed warrant INPATIENT care.: Yes I certify that my determination is in accordance with my understanding of Medicare's requirements for reasonable and necessary INPATIENT services [42 CFR 412.3e].: Yes Medical Necessity: Need Close Monitoring Due to Risk of Patient Decompensation, Need For IV Fluids, Need For Continuous Telemetry Monitoring, Risk of Complication if Not Cared For in Hospital Post Hospital Care: D/C Medical Office Scheduler Documentation - Plan Summary Plan Summary: Continue current management. Monitor serum CK level in AM. Possible discharge home tomorrow.
[2017-07-11] MEDS: LANSOPRAZOLE 30 MG TAB.RAP.DR PO SCH (05:55)
[2017-07-11 06:04] LABS: ANION GAP 14 (5-19); BLOOD UREA NITROGEN 25 mg/dL (7-20); CALCIUM 9.6 mg/dL (8.4-10.2); CARBON DIOXIDE 20 mmol/L (22-30); CHLORIDE 109 mmol/L (98-107); CREATINE KINASE 139 U/L (30-135); GLUCOSE 98 mg/dL (75-110); POTASSIUM 4.9 mmol/L (3.6-5.0); SODIUM 142.9 mmol/L (137-145)
[2017-07-11 08:09] VITALS: BP 148/65
--- NOTE | 2017-07-11 08:42 | PDOC DISCHARGE SUMMARY ---
General - Admit/Disc Date/PCP Admission Date/Primary Care Provider: 07/09/17 16:57 JULI MARY Discharge Date: 07/11/17 - Discharge Diagnosis (1) Fall at home Is this a current diagnosis for this admission?: Yes (4) Syncope Is this a current diagnosis for this admission?: Yes (5) Diabetes mellitus type 2 in obese Is this a current diagnosis for this admission?: Yes (6) HTN (hypertension) Is this a current diagnosis for this admission?: Yes (7) HLD (hyperlipidemia) Is this a current diagnosis for this admission?: Yes (8) Lumbar degenerative disc disease Is this a current diagnosis for this admission?: Yes (9) Osteoarthritis involving multiple joints on both sides of body Is this a current diagnosis for this admission?: Yes (10) Rhabdomyolysis Is this a current diagnosis for this admission?: Yes - Additional Information Resuscitation Status: Full Code Discharge Diet: Cardiac, Diabetic Discharge Activity: Activity As Tolerated Home Medications: Amlodipine Besylate [Norvasc 5 mg Tablet] 5 mg PO DAILY 07/07/17 Gabapentin [Neurontin 300 mg Capsule] 300 mg PO BID 07/07/17 Gabapentin [Neurontin 300 mg Capsule] 600 mg PO QHS 07/07/17 Glimepiride [Amaryl] 2 mg PO DAILY 07/07/17 Irbesartan [Avapro] 150 mg PO DAILY 07/07/17 Linaclotide [Linzess] 72 mcg PO DAILY 07/07/17 History of Present Illness History of Present Illness: MYLES FISCHER is a 77 year old female known to my practice who was brought to the ED by EMS after she was found in her closet at home. Patient narrated that she had her boiler changed recently at home and in the course of her going into her closet stepped on water, slipped and fell down. She claimed that she lost consciousness after she fell. She remain on the floor for couple of hours before she was able to alert her neighbour by banging on her wall with quit frame . Her neighbour eventually activate EMS service and she was brought to the ED for further evaluation. Patient currently live alone! Her morbidities include hypertension, Diabetes Mellitus type 2, Osteoarthritis, Degenerative disc disease with chronic back pain and radiculopathy, and Depression. Hospital Course Hospital Course: Admitted for fall with INA, hyperkalemia, and rhabdomyolysis. She was managed with IV fluid support with improvement in her renal indices and CK level. Ambulate safely with walker. Continue to reported right hip joint and lower back pain with radiation into her legs, which are chronic and ongoing before her fall. She is agreeable to discharge home today with [employer] services including visiting nurse and physical therapy for home safety check and rehabilitation. She will follow up in the office as instructed upon discharge. I had extensive discussion with son, Jaun, regarding need for medical alert system for the patient due to her living arrangement. Physical Exam Vital Signs: Temp Pulse Resp BP Pulse Ox 97.5 F 60 18 148/65 H 99 07/11/17 07:38 07/11/17 07:38 07/11/17 07:38 07/11/17 07:38 07/11/17 07:38 Intake & Output 07/10/17 07/11/17 07/12/17 06:59 06:59 06:59 Intake Total 3422 2110 Balance 3422 2110 Weight 118.7 kg 119.3 kg Physical Exam: General appearance: PRESENT: no acute distress, obese Head exam: PRESENT: atraumatic, normocephalic Eye exam: PRESENT: conjunctiva pink, EOMI, PERRLA. ABSENT: scleral icterus Mouth exam: PRESENT: moist Teeth exam: PRESENT: poor dentition Respiratory exam: PRESENT: clear to auscultation james Cardiovascular exam: PRESENT: RRR. ABSENT: diastolic murmur, rubs, systolic murmur GI/Abdominal exam: PRESENT: normal bowel sounds, soft. ABSENT: distended, guarding, mass, organomegaly, rebound, tenderness Extremities exam: ABSENT: pedal edema Musculoskeletal exam: PRESENT: normal inspection Neurological exam: PRESENT: alert, awake, oriented to person, oriented to place , oriented to time, oriented to situation, CN II-XII grossly intact. ABSENT: motor sensory deficit Psychiatric exam: PRESENT: appropriate affect, normal mood. ABSENT: homicidal ideation, suicidal ideation Skin exam: PRESENT: dry, intact, warm. ABSENT: cyanosis, rash Results Laboratory Results: 07/11/17 04:47 07/11/17 04:47 Sodium 142.9 Potassium 4.9 Chloride 109 H Carbon Dioxide 20 L Anion Gap 14 BUN 25 H Creatinine 1.14 Est GFR ( Amer) 56 L Est GFR (Non-Af Amer) 46 L Glucose 98 Calcium 9.6 07/10/17 07/11/17 05:34 04:47 Creatine Kinase 268 H 139 H Impressions: Chest X-Ray 07/07/17 00:11 IMPRESSION: No acute cardiopulmonary findings. Head CT 07/07/17 00:11 IMPRESSION: No acute findings. Hip X-Ray 07/07/17 00:11 IMPRESSION: No acute findings. Qualifiers - * PATEINT BEING DISCHARGED WITH ANY OF THE FOLLOWING DIAGNOSIS?: No Plan Discharge Plan: D/C home today. Follow up in the office as instructed upon discharge.
[2017-07-11] MEDS: AMLODIPINE BESYLATE 5 MG TABLET PO SCH (09:05)
[2017-07-11] MEDS: GABAPENTIN 300 MG CAPSULE PO SCH (09:06)
[2017-07-11] MEDS: GLIMEPIRIDE 1 MG TABLET PO SCH (09:06)
[2017-07-11] MEDS: ENOXAPARIN SODIUM INJ 40 MG/0.4 ML DISP.SYRIN SUBCUT SCH (09:06)
[2017-07-11] MEDS: LOSARTAN POTASSIUM 50 MG TABLET PO SCH (09:06)
== END 2017-07-11 12:03 | disposition home health service (06) | DRG 683 ==
LOC: ER 23:45 → EH 07-07 03:23 → 4W 07-07 14:40 → OBSVTOIN 07-09 16:57
PROVIDERS: ADMIT Internal Medicine Geriatric Medicine; ATTEND Internal Medicine Geriatric Medicine
DX: N17.9 Acute kidney failure, unspecified (principal); M62.82 Rhabdomyolysis; E87.5 Hyperkalemia; E11.9 Type 2 diabetes mellitus without complications; T79.6XXA Traumatic ischemia of muscle, initial encounter; W01.0XXA Fall on same level from slipping, tripping and stumbling without subsequent striking against object, initial encounter; Y92.018 Other place in single-family (private) house as the place of occurrence of the external cause; E78.00 Pure hypercholesterolemia, unspecified; E66.9 Obesity, unspecified; Z68.37 Body mass index [BMI] 37.0-37.9, adult; M51.36 Other intervertebral disc degeneration, lumbar region; M15.3 Secondary multiple arthritis; F32.9 Major depressive disorder, single episode, unspecified; I10 Essential (primary) hypertension; M19.90 Unspecified osteoarthritis, unspecified site; Z79.899 Other long term (current) drug therapy; Z90.49 Acquired absence of other specified parts of digestive tract; Z90.710 Acquired absence of both cervix and uterus; Z88.6 Allergy status to analgesic agent
CPT/HCPCS: 36415; 70450; 71045; 73522; 80048; 80053; 81001; 82550; 82553; 82962; 83735; 84484; 85025; 96360; 99285; G0378; G8978-GP; G8979-GP; G8980-GP; J1650; J7030; J7040